=== PATIENT | female | born 1960 | race Caucasian/White ===

== ENCOUNTER 2017-12-08 09:22 | Outpatient (CLI) | payer OTHER ==
[2017-12-08] MEDS ORDERED: ISOVUE-370 76%-LOCM 1 ML ONE (11:39)
== END 2017-12-08 09:23 | disposition home or self-care (01) ==
LOC: BICCT 09:22
PROVIDERS: ATTEND Internal Medicine Gastroenterology
DX: R19.7 Diarrhea, unspecified (principal); R19.8 Other specified symptoms and signs involving the digestive system and abdomen; K92.1 Melena; K64.8 Other hemorrhoids; K21.9 Gastro-esophageal reflux disease without esophagitis; K59.00 Constipation, unspecified; Z98.84 Bariatric surgery status
CPT/HCPCS: 74177

== ENCOUNTER 2018-01-19 07:42 | Outpatient (CLI) | payer OTHER | END 2018-01-19 07:43 | disposition home or self-care (01) | LOC: BICULT 07:42 | PROVIDERS: ATTEND Specialist | DX: N93.9 Abnormal uterine and vaginal bleeding, unspecified (principal); R93.8 Abnormal findings on diagnostic imaging of other specified body structures; Z78.0 Asymptomatic menopausal state | CPT/HCPCS: 76856 ==

== ENCOUNTER 2018-05-06 09:23 | Outpatient (CLI) | payer OTHER | END 2018-05-06 09:24 | disposition home or self-care (01) | LOC: BICMAMMO 09:23 | PROVIDERS: ATTEND Specialist | DX: Z12.31 Encounter for screening mammogram for malignant neoplasm of breast (principal); N93.8 Other specified abnormal uterine and vaginal bleeding; R92.1 Mammographic calcification found on diagnostic imaging of breast; Z80.3 Family history of malignant neoplasm of breast | CPT/HCPCS: 76856; 77063; 77067 ==

== ENCOUNTER 2018-06-16 10:56 | Outpatient (CLI) | payer OTHER | END 2018-06-16 10:57 | disposition home or self-care (01) | LOC: BICRAD 10:56 | PROVIDERS: ATTEND Specialist | DX: M25.552 Pain in left hip (principal) ==

== ENCOUNTER 2018-10-13 13:49 | Emergency (ER) | payer OTHER ==
[2018-10-13] MEDS ORDERED: Nitroglycerin 4.9 GM Bottle ONE (14:19)
[2018-10-13] MEDS ORDERED: Ondansetron PF 4 MG/2 ML Vial ONE (14:19)
[2018-10-13] MEDS ORDERED: Nitroglycerin 0.4 MG TAB (25 Tab Bottle) ONE (14:20)
[2018-10-13] MEDS ORDERED: Lidocaine Viscous Sol 2% 15 ml UD Cup ONE (14:21)
[2018-10-13] MEDS ORDERED: Nitroglycerin 2% Ointment 1 INCH/1 GM Packet ONE (14:21)
[2018-10-13] MEDS ORDERED: Mag-Al Plus 1200 MG/1200 MG/120 MG/30 ML UDCUP ONE (14:21)
--- NOTE | 2018-10-13 14:30 | RAD ---
PORTABLE CHEST 1 VIEW: Date: 10/13/18 Time: 1433 hours HISTORY: Chest pain. FINDINGS: The heart size is normal. The lungs are well expanded without focal areas of consolidation, pneumotho races, or pleural effusions. IMPRESSION: No radiographic evidence of acute cardiopulmonary process. POS: [facility]
[2018-10-13 14:46] LABS: #Basophils 0.1 thou/uL (0.0-0.2); #Eosinphils 0.1 thou/uL (0.0-0.7); #Lymphocytes 1.7 thou/uL (1.20-3.40); #Monocytes 0.3 thou/uL (0.11-0.59); %Basophils 1.5 % (0.0-1.0); %Eosinophils 1.6 % (0.0-10.0); %Lymphocytes 32.2 % (21.0-51.0); %Monocytes 6.4 % (0.0-10.0); %Neutrophils 58.2 % (42.0-75.0); Hemoglobin 11.7 g/dL (12.0-16.0); Mean Corpuscular HGB CONC 31.9 g/dL (32.0-36.0); Mean Corpuscular Hemoglobin 27.1 pg (27.0-31.0); Mean Corpuscular Volume 84.9 fL (78.0-98.0); Mean Platelet Volume 6.4 fL (7.4-10.4); Platelet Count 244 thou/uL (130-400); RBC Distribution Width 13.4 % (11.5-14.5); Red Blood Cell (RBC) Count 4.33 mill/uL (4.20-5.40); White Blood Cell (WBC) Count 5.2 thou/uL (4.8-10.8)
[2018-10-13 15:01] LABS: ALT (SGPT) 12 U/L (8-55); AST (SGOT) 17 U/L (5-34); Albumin 4.2 g/dL (3.5-5.0); Alkaline Phosphatase 92 U/L (40-150); Anion Gap 14 mmol/L (10-20); BUN (Urea Nitrogen) 12 mg/dL (9.8-20.1); Bilirubin, Total 0.5 mg/dL (0.2-1.2); CK (CPK) 123 U/L (29-168); Calc. Creatinine Clearance 0 mL/min (70-130); Calcium 10.3 mg/dL (7.8-10.44); Carbon Dioxide 23 mmol/L (22-29); Chloride 107 mmol/L (98-107); Estimated GFR-MDRD 86; Globulin 2.6 g/dL (2.4-3.5); Glucose 85 mg/dL (70-105); Lipase 29 U/L (8-78); Potassium 3.7 mmol/L (3.5-5.1); Protein, Total 6.8 g/dL (6.0-8.3); Sodium 140 mmol/L (136-145)
== END 2018-10-13 15:12 | disposition home or self-care (01) ==
LOC: SCSER 13:49
DX: R07.89 Other chest pain (principal); I10 Essential (primary) hypertension
CPT/HCPCS: 71045; 80053; 82550; 83690; 84484; 85025; 93005; 96374; J2405

== ENCOUNTER 2019-04-26 10:46 | Outpatient (CLI) | payer OTHER ==
--- NOTE | 2019-04-26 12:40 | RAD ---
LEFT HIP: 04/26/19 Two views. INDICATIONS: Hip pain. No fracture. No significant degenerative change. Femoral head contour is normal. No osseous abnormali ty seen. IMPRESSION: No acute findings. POS: [place]
--- NOTE | 2019-04-26 12:41 | RAD ---
LUMBAR SPINE: 04/26/19 Three views. HISTORY: Back pain from fall with injury. Lumbar vertebrae maintain normal height and alignment. Disc spaces are preserved. No evidence of spon dylolisthesis. No lytic or blastic process. IMPRESSION: Unremarkable lumbar spine. POS: [facility]
== END 2019-04-26 10:47 | disposition home or self-care (01) ==
LOC: BICRAD 10:46
PROVIDERS: ATTEND Specialist
DX: M25.552 Pain in left hip (principal); M54.5 Low back pain
CPT/HCPCS: 72100

== ENCOUNTER 2019-05-25 12:36 | Outpatient (CLI) | payer OTHER ==
--- NOTE | 2019-05-25 16:39 | MRI ---
MRI LUMBAR SPINE WITHOUT CONTRAST: INDICATIONS: Lumbar radiculopathy. Low back pain. FINDINGS: The lumbar vertebrae maintain normal height and alignment. Disk spaces are maintained. Vertebral betito dy signal is normal. No significant disk bulge or protrusion is seen at L1-L2 or at L2-L3. At L3-L4, minimal disk bulge flattens the anterior thecal sac. There is facet hypertrophy, resulting in minimal central canal stenosis. At L4-L5, there is evidence of an annular fissure on the left with broad-based disk bulge flattening the thecal sac. There is moderate facet and ligamentous hypertrophy. These changes result in mild t o moderate central canal stenosis. At L5-S1, there is mild diffuse disk bulge. Congenitally smaller thecal sac without central canal st enosis. The foramina appear patent. IMPRESSION: There is an annular fissure with a broad-based disk bulge at L4-L5, resulting in mild to moderate boris tral canal stenosis. There is prominent facet hypertrophy at this level with a synovial cyst identif ied, which did not impinge on the spinal canal. POS: [facility]
--- NOTE | 2019-05-25 16:57 | MRI ---
MRI LEFT HIP: Date: 05/25/19 PROVIDED CLINICAL HISTORY: Left hip pain. FINDINGS: The left hip flexor, abductor, adductor, and hamstring tendons demonstrate an intact MR appearance. The amount of fluid within the left hip joint appears physiologic. The acetabular labrum and femoral- acetabular articular cartilage are suboptimally evaluated in the absence of joint distention. No focal concerning regional marrow or muscular signal abnormality is evident. The courses of the regional major neurovascular structures appear unremarkable. IMPRESSION: No evidence for internal derangement. POS: [facility]
== END 2019-05-25 12:37 | disposition home or self-care (01) ==
LOC: MRI 12:36
PROVIDERS: ATTEND Specialist
DX: M51.16 Intervertebral disc disorders with radiculopathy, lumbar region (principal); M48.061 Spinal stenosis, lumbar region without neurogenic claudication; M71.38 Other bursal cyst, other site
CPT/HCPCS: 72148

== ENCOUNTER 2019-06-14 13:42 | Outpatient (CLI) | payer OTHER ==
--- NOTE | 2019-06-14 14:23 | MMO ---
Bilateral MAMMO Bilat Screen [facility]. CLINICAL HISTORY: Patient is 58 years old and is seen for screening. The patient has no personal history of cancer. The patient has a history of bilateral Implants in October,. VIEWS: The views performed were: bilateral craniocaudal; bilateral mediolateral oblique; and bilateral Implant displaced with tomosynthesis. FILMS COMPARED: The present examination has been compared to prior imaging studies performed at [facility] on 08/17/2013, 11/22/2014, 05/04/2017 and 05/06/2018. MAMMOGRAM FINDINGS: There are scattered fibroglandular densities. There are no suspicious masses, suspicious calcifications, or new areas of architectural distortion. IMPRESSION: THERE IS NO MAMMOGRAPHIC EVIDENCE OF MALIGNANCY. A ROUTINE FOLLOW-UP MAMMOGRAM IN 1 YEAR IS RECOMMENDED. THE RESULTS OF THIS EXAM WERE SENT TO THE PATIENT. ACR BI-RADS Category 1 - Negative MAMMOGRAPHY NOTE: 1. A negative mammogram report should not delay a biopsy if a dominant of clinically suspicious mass is present. 2. Approximately 10% to 15% of breast cancers are not detected by mammography. 3. Adenosis and dense breasts may obscure an underlying neoplasm. Reported by: BENSON SHAH MD Electonically Signed: [id number]
== END 2019-06-14 13:43 | disposition home or self-care (01) ==
LOC: BICMAMMO 13:42
PROVIDERS: ATTEND Specialist
DX: Z12.31 Encounter for screening mammogram for malignant neoplasm of breast (principal)
CPT/HCPCS: 77063; 77067

== ENCOUNTER 2019-10-19 12:56 | Outpatient (CLI) | payer OTHER ==
--- NOTE | 2019-10-19 14:02 | RAD ---
FOUR VIEWS OF THE LUMBAR SPINE: DATE: 10/19/2019. COMPARISON: None. HISTORY: Low back pain, prior fall. FINDINGS: Clips and suture material noted in the left upper quadrant. Five lumbar-type vertebral bodies are pr esent with intact pedicles on frontal imaging. Lateral imaging demonstrates normal vertebral body he ight and alignment. There is facet hypertrophy at L4-5 and L5-S1. The lateral imaging includes neut ral, flexion, and extension views, none of which demonstrate significant anterolisthesis or retrolist hesis at any level. IMPRESSION: No acute findings. POS: [facility]
== END 2019-10-19 12:57 | disposition home or self-care (01) ==
LOC: BICRAD 12:56
PROVIDERS: ATTEND Neurological Surgery
DX: M54.5 Low back pain (principal)
CPT/HCPCS: 72110

== ENCOUNTER 2020-06-13 12:58 | Outpatient (CLI) | payer OTHER ==
--- NOTE | 2020-06-14 07:14 | CT ---
CT LUMBAR SPINE WITHOUT CONTRAST: INDICATIONS: 59-year-old female with low back pain after fall COMPARISON: MR the lumbar spine without contrast dated May 25, 2019 TECHNIQUE: Multiple CT images were obtained of the lumbar spine without contrast. Axial, coronal, and sagittal r eformatted images were constructed from the raw data. FINDINGS: Visualized retroperitoneal and paravertebral soft tissues: Within normal limits Spinal alignment: Within normal limits. Spinal instrumentation or postsurgical change: None At L5-S1, there is no appreciable central canal or neuroforaminal narrowing.. At L4-5, there is a residual broad-based disc bulge at L4-5 inducing at least mild central canal narr owing that appears similar to comparison MR. There is at least mild bilateral neural foraminal narrowing that appears similar. At L3-4, there is no appreciable central canal or neuroforaminal narrowing. At L2-3, there is no appreciable central canal or neuroforaminal narrowing. At L1-L2, there is no appreciable central canal or neuroforaminal narrowing. At T12-L1, there is no appreciable central canal or neuroforaminal narrowing. IMPRESSION: 1. No acute fracture subluxation demonstrated. 2. Likely stable mild spondylosis of the lumbar spine with mild central canal narrowing and mild bila teral neural foraminal narrowing at L4-5.
== END 2020-06-13 12:59 | disposition home or self-care (01) ==
LOC: TBSIIMAG 12:58
PROVIDERS: ATTEND Neurological Surgery
DX: M54.5 Low back pain (principal); M48.061 Spinal stenosis, lumbar region without neurogenic claudication
CPT/HCPCS: 72131

== ENCOUNTER 2020-08-12 13:58 | Outpatient (CLI) | payer OTHER ==
--- NOTE | 2020-08-12 14:38 | RAD ---
EXAM: XR Sacrum and Coccyx STANDARD PROVIDED CLINICAL HISTORY: Coccygeal pain. Patient states tailbone pain for past couple of years now more severe due to a fall 2 years ago. COMPARISON: None FINDINGS: Sacroiliac joints are symmetric in appearance bilaterally. No fracture is seen. No suspicious sclerot ic or lytic lesion is appreciated. Phleboliths overlie the left hemipelvis. IMPRESSION: No acute osseous abnormality.
== END 2020-08-12 13:59 | disposition home or self-care (01) ==
LOC: SCSRAD 13:58
PROVIDERS: ATTEND Specialist
DX: M53.3 Sacrococcygeal disorders, not elsewhere classified (principal)
CPT/HCPCS: 72220

== ENCOUNTER 2021-02-07 12:21 | Outpatient (CLI) | payer OTHER | END 2021-02-07 12:22 | disposition home or self-care (01) | LOC: BICRAD 12:21 | PROVIDERS: ATTEND Specialist | DX: J18.9 Pneumonia, unspecified organism (principal) | CPT/HCPCS: 71046 ==

== ENCOUNTER 2021-10-06 11:32 | Outpatient (CLI) | payer OTHER | END 2021-10-06 11:33 | disposition home or self-care (01) | LOC: BICRAD 11:32 | PROVIDERS: ATTEND Specialist | DX: M25.531 Pain in right wrist (principal) ==

== ENCOUNTER 2023-02-25 14:33 | Outpatient (CLI) | payer OTHER | END 2023-02-25 14:34 | disposition home or self-care (01) | LOC: TBSIIMAG 14:33 | PROVIDERS: ATTEND Psychiatry & Neurology Neurology | DX: M79.672 Pain in left foot (principal); G57.82 Other specified mononeuropathies of left lower limb; M72.2 Plantar fascial fibromatosis ==

== ENCOUNTER 2023-05-14 15:35 | Outpatient (CLI) | payer OTHER | END 2023-05-14 15:36 | disposition home or self-care (01) | LOC: SCSRAD 15:35 | PROVIDERS: ATTEND Internal Medicine Gastroenterology | DX: K59.09 Other constipation (principal); R19.7 Diarrhea, unspecified | CPT/HCPCS: 74019 ==

== ENCOUNTER 2024-09-12 14:25 | Outpatient (CLI) | payer OTHER | END 2024-09-12 14:26 | disposition home or self-care (01) | LOC: SCSMRI 14:25 | PROVIDERS: ATTEND Plastic Surgery Surgery of the Hand | DX: E28.1 Androgen excess (principal) | CPT/HCPCS: 36415; 70553; 76376; 82565 ==